=== PATIENT | female | born 1980 | race Caucasian/White ===

== ENCOUNTER → 2017-01-14 | Outpatient (CLI) | payer OTHER, MEDICAID ==
--- NOTE | 2017-01-14 10:44 | REP ---
Left foot four views : There is no fracture or dislocation. Mineralization and joint spaces are normal. There are no calcifications or foreign bodies. Impression: Negative left foot . Signed by Suhas Shukla MD 01/14/2017 10:35 A
== END ==
LOC: M LRY 09:51
PROVIDERS: ATTEND Physician Assistant
DX: M79.672 Pain in left foot (principal)

== ENCOUNTER → 2021-03-07 | Outpatient (CLI) | payer MEDICAID | LOC: M OUTALCOH 09:05 | PROVIDERS: ATTEND Psychiatry & Neurology Psychiatry | DX: F14.20 Cocaine dependence, uncomplicated (principal) ==

== ENCOUNTER 2021-04-05 11:53 | Emergency (ER) | payer MEDICAID, OTHER ==
[~2021-04-05] VITALS: Ht 165.1 cm; Wt 67.5 kg
[2021-04-05 11:53] VITALS: BP 120/67
[2021-04-05] MEDS ORDERED: VANCOMYCIN HCL 1,250 MG in NS 250 ML IV ONE (14:05)
[2021-04-05] MEDS ORDERED: LIDOCAINE 1% MDV 20ML VIAL SC ONE (14:05)
[2021-04-05] MEDS ORDERED: VANCOMYCIN HCL 750 MG, VIAL MATE ADAPTER 1 EACH in NS 250 ML IV ONE (14:10)
[2021-04-05] MEDS ORDERED: VANCOMYCIN HCL 500 MG in D5W MINI-BAG PLUS 100 ML IV ONE (15:15)
== END 2021-04-05 14:32 | disposition home or self-care (01) ==
LOC: M ED 11:53
DX: M79.89 Other specified soft tissue disorders (principal); Z53.9 Procedure and treatment not carried out, unspecified reason; J45.909 Unspecified asthma, uncomplicated; J30.2 Other seasonal allergic rhinitis; F17.200 Nicotine dependence, unspecified, uncomplicated

== ENCOUNTER 2021-04-05 14:19 | Outpatient (RCR) | payer MEDICAID, OTHER | END 2021-04-16 | LOC: M OUTALCOH 14:19 | PROVIDERS: ATTEND Psychiatry & Neurology Psychiatry | DX: F14.20 Cocaine dependence, uncomplicated (principal); F17.200 Nicotine dependence, unspecified, uncomplicated ==

== ENCOUNTER → 2022-01-10 | Outpatient (CLI) | payer MEDICAID | LOC: M OUTALCOH 07:55 | PROVIDERS: ATTEND Psychiatry & Neurology Psychiatry | DX: Z02.9 Encounter for administrative examinations, unspecified (principal) ==

== ENCOUNTER 2022-02-10 14:00 | Outpatient (RCR) | payer MEDICAID | END 2022-02-13 | LOC: M OUTALCOH 14:00 | PROVIDERS: ATTEND Psychiatry & Neurology Psychiatry | DX: F14.20 Cocaine dependence, uncomplicated (principal); F17.200 Nicotine dependence, unspecified, uncomplicated ==

== ENCOUNTER 2022-03-13 14:00 | Outpatient (RCR) | payer MEDICAID | END 2022-03-16 | LOC: M OUTALCOH 14:00 | PROVIDERS: ATTEND Psychiatry & Neurology Psychiatry | DX: F14.20 Cocaine dependence, uncomplicated (principal); F17.200 Nicotine dependence, unspecified, uncomplicated ==

== ENCOUNTER → 2022-04-16 | Outpatient (RCR) | payer MEDICAID | LOC: M OUTALCOH 03-17 14:00 | PROVIDERS: ATTEND Psychiatry & Neurology Psychiatry | DX: F14.20 Cocaine dependence, uncomplicated (principal); F17.200 Nicotine dependence, unspecified, uncomplicated ==

== ENCOUNTER 2022-05-14 15:30 | Outpatient (RCR) | payer MEDICAID | END 2022-05-16 | LOC: M OUTALCOH 15:30 | PROVIDERS: ATTEND Psychiatry & Neurology Psychiatry | DX: F14.20 Cocaine dependence, uncomplicated (principal) ==

== ENCOUNTER → 2022-06-16 | Outpatient (RCR) | payer MEDICAID | LOC: M OUTALCOH 05-19 17:02 | PROVIDERS: ATTEND Psychiatry & Neurology Psychiatry | DX: F14.20 Cocaine dependence, uncomplicated (principal) ==

== ENCOUNTER 2022-07-09 14:00 | Outpatient (RCR) | payer MEDICAID | END 2022-07-16 | LOC: M OUTALCOH 14:00 | PROVIDERS: ATTEND Psychiatry & Neurology Psychiatry | DX: F14.20 Cocaine dependence, uncomplicated (principal) ==

== ENCOUNTER 2022-07-17 12:51 | Outpatient (RCR) | payer MEDICAID | END 2022-08-16 | LOC: M OUTALCOH 12:51 | PROVIDERS: ATTEND Psychiatry & Neurology Psychiatry | DX: F14.20 Cocaine dependence, uncomplicated (principal) ==

== ENCOUNTER 2022-08-21 15:50 | Outpatient (RCR) | payer MEDICAID | END 2022-09-16 | LOC: M OUTALCOH 15:50 | PROVIDERS: ATTEND Psychiatry & Neurology Psychiatry | DX: F14.20 Cocaine dependence, uncomplicated (principal) ==

== ENCOUNTER 2022-09-25 15:57 | Outpatient (RCR) | payer MEDICAID | END 2022-10-14 | LOC: M OUTALCOH 15:57 | PROVIDERS: ATTEND Psychiatry & Neurology Psychiatry | DX: F14.20 Cocaine dependence, uncomplicated (principal) ==

== ENCOUNTER 2022-11-13 15:49 | Outpatient (RCR) | payer MEDICAID | END 2022-11-14 | LOC: M OUTALCOH 15:49 | PROVIDERS: ATTEND Psychiatry & Neurology Psychiatry | DX: F14.20 Cocaine dependence, uncomplicated (principal) ==